=== PATIENT | female | born 1940 | race Caucasian/White ===

== ENCOUNTER 2018-12-17 12:56 | Emergency (ER) | payer OTHER ==
[~2018-12-17] VITALS: Ht 154.9 cm; Wt 86.2 kg
[2018-12-17 13:15] VITALS: BP 190/85
--- NOTE | 2018-12-17 13:15 | NUR ---
PATIENT AMBULATED TO ER BED 1.
--- NOTE | 2018-12-17 13:25 | NUR ---
PT IS A 78 Y/O FEMALE WHO PRESENTS TO THE ED C/O HIGH BP. PT STATES THAT SHE WAS SCHEDULE FOR CATARACT SURGERY TODAY BUT DUE TO HIGH BP REFERRED TO ED. PT DENIES PAIN AT THIS TIME. PT DENIES CP, SOB, N/V/D, BLURRY VISION. PT AWAKE AND ALERT, RR EVEN/UNLABORED. PT REPOSITIONED FOR COMFORT, BED IN LOWEST POSITION. ER MD DR. ELLIOTT NOTIFIED. WILL CONTINUE TO MONITOR. PMH---CHOLESTEROL, HTN, LIVER NKA
--- NOTE | 2018-12-17 14:35 | NUR ---
PATIENT CONTINUES TO DENY DISCOMFORT, VISUAL SYMPTOMS, HEADACHE, DIZZINESS.
--- NOTE | 2018-12-17 14:49 | NUR ---
ROCKET ENGINE TESTER AT BEDSIDE. STORAGE ENGINEER HERE AND READY TO TAKE PATIENT FOR HEAD CT.
[2018-12-17 15:14] LABS: BASOPHILS # (AUTO) 0.1 K/uL (0.00-0.22); EOSINOPHILS # (AUTO) 0.5 K/uL (0-0.4); EOSINOPHILS % (AUTO) 6.7 % (0.0-4.0); HEMOGLOBIN 13.8 g/dL (12.0-16.0); LYMPHOCYTES # (AUTO) 2.3 K/uL (2.5-16.5); LYMPHOCYTES % (AUTO) 33.6 % (20.5-51.1); MEAN CORPUSCULAR HEMOGLOBIN 28 pg (27-31); MEAN CORPUSCULAR HGB CONC 34 g/dL (33-37); MEAN CORPUSCULAR VOLUME 83.4 fL (80-94); MONOCYTES # (AUTO) 0.4 K/uL (0.8-1.0); MONOCYTES % (AUTO) 5.6 % (1.7-9.3); NEUTROPHILS # (AUTO) 3.6 K/uL (1.8-7.7); NEUTROPHILS % (AUTO) 53.1 % (42.2-75.2); PLATELET COUNT (AUTO) 223 K/uL (140-450); RED BLOOD CELL COUNT(AUTO) 4.92 MIL/uL (4.20-5.40); RED CELL DISTRIBUTION WIDTH 13.1 % (11.6-13.7); WHITE BLOOD COUNT (AUTO) 6.9 K/uL (4.8-10.8)
--- NOTE | 2018-12-17 15:14 | NUR ---
NOTIFIED DR. ELLIOTT THAT PT ADMITTED TO UTI SX. TO PLACE ORDER.
--- NOTE | 2018-12-17 15:14 | NUR ---
PT AMBULATORY TO BATHROOM WITH STEADY GAIT WITH DAUGHTER AT BEDSIDE. URINE SAMPLE CUP PROVIDED TO PT.
--- NOTE | 2018-12-17 15:33 | NUR ---
DAUGHTER ASKING IF PATIENT CAN EAT. ASKED DR. ELLIOTT WHO SAID KEEP NPO, INFORMED DAUGHTER AND PATIENT OF THIS.
[2018-12-17 15:36] LABS: ANION GAP 9.7 (8-16); CARBON DIOXIDE 33.6 mmol/L (21-32); CHLORIDE 103 mmol/L (98-107); CREATININE 0.7 mg/dL (0.6-1.3); GLUCOSE 106 mg/dL (74-106); POTASSIUM 3.3 mmol/L (3.5-5.1); SODIUM SERUM 143 mmol/L (136-145); UREA NITROGEN, BLOOD 10 mg/dL (7-18)
[2018-12-17 15:42] LABS: APPEARANCE,URINE CLEAR (CLEAR); BILIRUBIN,URINE NEGATIVE (NEGATIVE); BLOOD, URINE NEGATIVE (NEGATIVE); COLOR,URINE YELLOW (YELLOW); LEUKOCYTE ESTERASE ,URINE NEGATIVE (NEGATIVE); NITRITE, URINE NEGATIVE (NEGATIVE); UGLUCOSE NEGATIVE (NEGATIVE)
[2018-12-17 15:46] LABS: ASPARTATE AMINOTRANSFERASE 20 U/L (15-37); TOTAL BILIRUBIN 0.8 mg/dL (0.0-1.0)
--- NOTE | 2018-12-17 16:01 | NUR ---
DR. ELLIOTT AT BEDSIDE TO SPEAK WITH PATIENT AND FAMILY.
[2018-12-17 16:25] VITALS: BP 165/64
--- NOTE | 2018-12-17 16:25 | NUR ---
Patient discharged with v/s stable. Written and verbal after care instructions given and explained. Patient verbalized understanding. Ambulatory with steady gait with daughter at side. All questions addressed prior to discharge. Advised to follow up with PMD.
== END 2018-12-17 16:25 | disposition home or self-care (01) ==
LOC: MED 12:56
DX: I10 Essential (primary) hypertension (principal); E78.5 Hyperlipidemia, unspecified; Z86.39 Personal history of other endocrine, nutritional and metabolic disease; Z98.890 Other specified postprocedural states
CPT/HCPCS: 36415; 70450; 80053; 81003; 84484; 85025; 93005; 99284